=== PATIENT | female | born 1950 | race African-American/Black ===

== ENCOUNTER 2021-05-24 08:55 | Observation (INO) ==
[2021-05-24 09:27] LABS: Basophils % 0.2 % (0.0-0.8); Eosinophils # 0.1 10*3/uL (0.0-0.87); Eosinophils % 1.6 % (0.00-10.9); Hematocrit 37.9 VOL% (35.7-47.0); Hemoglobin 12.8 GM/DL (12.0-16.0); Immature Granulocytes % 0.7 %; Immature Granulocytes Absolute 0.04 #; Lymphocytes # 1.1 10*3/uL (1.4-4.0); Lymphocytes % 19.5 % (21.3-54.2); Mean Corpuscular HGB Conc 33.8 GM/DL (32-36); Mean Corpuscular Volume 80.6 FL (87-102); Mean Platelet Volume 11.1 FL (9.6-12.0); Monocytes % 7.6 % (1.7-12.7); Neutrophils % 70.4 % (38.7-73.9); Platelet Count 252 T/CUMM (130-400); Red Cell Distribution Width 14.5 % (9.3-17.3); White Blood Count 5.7 T/CUMM (4-12)
[2021-05-24 09:59] LABS: Bilirubin,Urine Negative (Negative); Blood, Urine Negative (Negative); Glucose,Urine (UA) Negative (Negative); Ketones,Urine Negative (Negative); Mucus,Urine Occasional /LPF (Occasional); Nitrite,Urine Negative (Negative); Protein,Urine Negative; RBC,Urine 1 /HPF (0-4); Squamous Epithelial Cell,Urine Occasional /HPF (0-10); Urine Appearance CLEAR (Clear); Urine Color Yellow (Yellow); Urine Specific Gravity 1.006 (1.001-1.035); Urine Urobilinogen < 2.0 EU/DL (0.2-1.0)
[2021-05-24 11:13] LABS: Albumin 3.2 G/DL (3.4-5.0); Bilirubin,Total 0.6 MG/DL (0.20-1.00); Calcium 9.1 MG/DL (8.5-10.1); Osmolality,Calculated 275.5 MOS/KG (273-304); Potassium 3.1 MMOL/L (3.5-5.1); Total Protein 7.4 G/DL (6.4-8.2)
[2021-05-24] MEDS ORDERED: POTASSIUM CHLORIDE 20 MEQ TABLET PO STA (11:18)
[2021-05-24] MEDS ORDERED: ALUM/MAG/SIMETH/LIDO VISC 1:1 30 ML BOTTLE PO STA (12:25)
[2021-05-24] MEDS ORDERED: DEXTROSE 50% 25 GM/50 ML VIAL IV PRN (12:25)
[2021-05-24] MEDS ORDERED: ACETAMINOPHEN 325 MG TABLET PO PRN (12:25)
[2021-05-24] MEDS ORDERED: MAGNESIUM SULF RIDER 4 GM/100 ML PREMIX IV PRN (12:25)
[2021-05-24] MEDS ORDERED: BISACODYL 5 MG TABLET PO PRN (12:25)
[2021-05-24] MEDS ORDERED: MAGNESIUM SULF RIDER 2 GM/50 ML PREMIX IV PRN (12:25)
[2021-05-24] MEDS ORDERED: GLUCAGON 1 MG VIAL IM PRN (12:25)
[2021-05-24] MEDS ORDERED: ONDANSETRON 4 MG/2 ML VIAL IV PRN (12:25)
[2021-05-24] MEDS ORDERED: MORPHINE 2 MG/1 ML SYRINGE IV PRN (12:25)
[2021-05-24] MEDS ORDERED: MELATONIN 3 MG TABLET PO PRN (12:28)
[2021-05-24] MEDS ORDERED: ENOXAPARIN 40 MG/0.4 ML SYRINGE SUBCUT SCH (13:00)
[2021-05-24] MEDS: PANTOPRAZOLE 40 MG TABLET PO SCH (16:27)
[2021-05-24] MEDS: metroNIDAZOLE INJ 500 MG/100 ML PREMIX IV SCH ×2 (16:28→21:08)
[2021-05-24] MEDS: SODIUM CHLORIDE 0.9% 1,000 ML IV SCH ×2 (16:30→21:20)
[2021-05-24] MEDS: CIPROFLOXACIN INJ 400 MG/200 ML PREMIX IV SCH (18:14)
[2021-05-24] MEDS: ASCORBIC ACID 500 MG TABLET PO SCH (21:09)
[2021-05-25 04:29] LABS: Basophils % 0.2 % (0.0-0.8); Eosinophils # 0.1 10*3/uL (0.0-0.87); Eosinophils % 3.3 % (0.00-10.9); Hematocrit 35.1 VOL% (35.7-47.0); Hemoglobin 11.7 GM/DL (12.0-16.0); Immature Granulocytes % 0.9 %; Immature Granulocytes Absolute 0.04 #; Lymphocytes # 1.3 10*3/uL (1.4-4.0); Lymphocytes % 30.9 % (21.3-54.2); Mean Corpuscular HGB Conc 33.3 GM/DL (32-36); Mean Corpuscular Volume 80.7 FL (87-102); Mean Platelet Volume 9.9 FL (9.6-12.0); Monocytes % 11.6 % (1.7-12.7); Neutrophils % 53.1 % (38.7-73.9); Platelet Count 215 T/CUMM (130-400); Red Blood Count 4.35 MC/CUMM (3.8-5.5); White Blood Count 4.3 T/CUMM (4-12)
[2021-05-25 04:44] LABS: Calcium 8.5 MG/DL (8.5-10.1); Osmolality,Calculated 278.3 MOS/KG (273-304); Potassium 3.6 MMOL/L (3.5-5.1)
[2021-05-25] MEDS: CIPROFLOXACIN INJ 400 MG/200 ML PREMIX IV SCH (05:30)
[2021-05-25] MEDS: SODIUM CHLORIDE 0.9% 1,000 ML IV SCH ×2 (05:49→10:16)
[2021-05-25] MEDS: metroNIDAZOLE INJ 500 MG/100 ML PREMIX IV SCH (06:30)
[2021-05-25 07:46] VITALS: BP 113/70
[2021-05-25] MEDS: ASCORBIC ACID 500 MG TABLET PO SCH (08:20)
[2021-05-25] MEDS: PANTOPRAZOLE 40 MG TABLET PO SCH (08:20)
[2021-05-25] MEDS ORDERED: CHOLECALCIFEROL 1,000 UNIT TABLET PO SCH (09:00)
[2021-05-25] MEDS ORDERED: ZINC GLUCONATE 50 MG TABLET PO SCH (09:00)
== END 2021-05-25 10:50 | disposition home or self-care (01) ==
LOC: N.EDINP 08:55 → N.ED 08:55 → SUATTDRO 12:25 → N.EDINP 14:36 → N.2E 17:37
PROVIDERS: ADMIT Internal Medicine; ATTEND Internal Medicine